=== PATIENT | male | born 1990 ===

== ENCOUNTER → 2018-05-25 | Outpatient (CLI) | payer OTHER | LOC: MHCPAIN 08:57 | DX: G89.29 Other chronic pain (principal); M79.2 Neuralgia and neuritis, unspecified; R10.30 Lower abdominal pain, unspecified | CPT/HCPCS: G0463 ==

== ENCOUNTER → 2018-07-01 | Outpatient (CLI) | payer OTHER | LOC: MHCPAIN 10:03 | DX: G89.29 Other chronic pain (principal); M79.2 Neuralgia and neuritis, unspecified; R10.30 Lower abdominal pain, unspecified | CPT/HCPCS: G0463 ==